=== PATIENT | female | born 1970 | race Native Hawaiian/Other Pacific Islander ===

== ENCOUNTER 2017-03-20 08:06 | Outpatient (CLI) | payer OTHER | END 2017-03-20 09:45 | disposition home or self-care (01) | LOC: MAMMO 08:06 | DX: Z12.31 Encounter for screening mammogram for malignant neoplasm of breast (principal) | CPT/HCPCS: G0202-TC ==

== ENCOUNTER 2018-06-09 11:26 | Outpatient (CLI) | payer OTHER | END 2018-06-09 20:41 | disposition home or self-care (01) | LOC: MAMMO 11:26 | DX: Z12.31 Encounter for screening mammogram for malignant neoplasm of breast (principal) ==

== ENCOUNTER 2019-01-06 08:41 | Outpatient (CLI) | payer OTHER | END 2019-01-06 21:02 | disposition home or self-care (01) | LOC: RAD 08:41 | DX: R60.0 Localized edema (principal) ==

== ENCOUNTER 2019-06-17 09:53 | Outpatient (CLI) | payer OTHER | END 2019-06-17 21:36 | disposition home or self-care (01) | LOC: MAMMO 09:53 | DX: Z12.31 Encounter for screening mammogram for malignant neoplasm of breast (principal) ==

== ENCOUNTER 2020-06-24 08:28 | Outpatient (CLI) | payer OTHER | END 2020-06-24 23:51 | disposition home or self-care (01) | LOC: MAMMO 08:28 | DX: Z12.31 Encounter for screening mammogram for malignant neoplasm of breast (principal) ==

== ENCOUNTER 2022-01-02 08:13 | Outpatient (CLI) | payer OTHER | END 2022-01-02 18:53 | disposition home or self-care (01) | LOC: MAMMO 08:13 | PROVIDERS: ATTEND Obstetrics & Gynecology | DX: Z12.31 Encounter for screening mammogram for malignant neoplasm of breast (principal) ==

== ENCOUNTER 2022-06-20 08:04 | Outpatient (CLI) | payer OTHER | END 2022-06-20 19:03 | disposition home or self-care (01) | LOC: US 08:04 | PROVIDERS: ATTEND Nurse Practitioner | DX: R10.11 Right upper quadrant pain (principal) ==

== ENCOUNTER 2023-01-04 08:32 | Outpatient (CLI) | payer OTHER | END 2023-01-04 20:35 | disposition home or self-care (01) | LOC: MAMMO 08:32 | PROVIDERS: ATTEND Obstetrics & Gynecology | DX: Z12.31 Encounter for screening mammogram for malignant neoplasm of breast (principal) ==